=== PATIENT | female | born 1960 | race African-American/Black ===

== ENCOUNTER 2018-12-25 20:26 | Emergency (ER) | payer OTHER, BC ==
[~2018-12-25] VITALS: Ht 160 cm; Wt 113.4 kg
[~2018-12-25 20:26] MED LIST: ACCOLATE10 MG PO; ALBUTEROL2.5 MG/0.5 IH; CARISOPRODOL 3350 MG PO; EPIPEN0.3 MG/0.3 IM; PREDNISONE 20 M20 M1 PO; PRINIVIL40 MG PO; SYMBICORT160 MCG/4. INH; TRIAMTERENE-HC1 EAC3 PO; VENTOLIN HFA 1818 GM; VENTOLIN HFA 1818 GM INH; XOLAIR150 MG SUBQ; ZOFRAN ODT4 M1 PO; ZOLAIR
[2018-12-25] MEDS ORDERED: CRESTOR10 MG PO (20:35)
[2018-12-25] MEDS ORDERED: COZAAR 25 MG TA25 M1 PO (20:36)
[2018-12-25] MEDS ORDERED: AMLODIPINE BESY10 MG PO (20:37)
[2018-12-25] MEDS ORDERED: NAPROSYN500 MG PO (20:38)
[2018-12-25] MEDS ORDERED: ZOLAIR (20:40)
[2018-12-25 21:53] VITALS: BP 138/87
== END 2018-12-25 21:53 | disposition home or self-care (01) ==
LOC: ER 20:26
DX: S00.03XA Contusion of scalp, initial encounter (principal); J45.909 Unspecified asthma, uncomplicated; I10 Essential (primary) hypertension; F32.9 Major depressive disorder, single episode, unspecified; Z90.49 Acquired absence of other specified parts of digestive tract; Z88.6 Allergy status to analgesic agent; Z88.0 Allergy status to penicillin; W00.0XXA Fall on same level due to ice and snow, initial encounter; Y93.89 Activity, other specified; Y92.89 Other specified places as the place of occurrence of the external cause; Y99.8 Other external cause status